=== PATIENT | female | born 1985 | race Caucasian/White ===

== ENCOUNTER 2017-12-07 20:00 | Emergency (ER) | payer OTHER ==
[2017-12-07 20:10] VITALS: BP 130/70; PULSE 89; TEMP 98.2; BMI 30.1
[2017-12-07] MEDS ORDERED: BACITRACIN 15 GM TUBE TOPICAL OINTMENT ONE (20:34)
--- NOTE | 2017-12-07 20:51 | PDOC ---
History of Present Illness - General Chief Complaint: Laceration Stated Complaint: LACERATION Time Seen by Provider: 12/07/17 20:40 History Source: Patient Exam Limitations: No Limitations - History of Present Illness Initial Comments: 12/07/17 20:40 Was opening avocado, taking the core out when slipped in incurred a stab wound to the midpoint of her left palm. Patient states is painful however does not have numbness or tingling to fingers, and still has range of motion to proximal and distal fourth digit. No active bleeding Occurred: reports: just prior to arrival Severity: reports: mild Pain Location: reports: upper extremity (left palm ) Past History - Travel Traveled outside of the country in the last 30 days: Yes Close contact w/someone who was outside of country & ill: Yes - Past Medical History Allergies/Adverse Reactions: Allergies Allergy/AdvReac Type Severity Reaction Status Date / Time No Known Allergies Allergy Verified 12/07/17 20:10 Home Medications: Ambulatory Orders NK [No Known Home Medication] 12/07/17 Cancer: No Cardiac Disorders: No CVA: No COPD: No DVT: No Dementia: No Diabetes: No - Surgical History Lung Surgery: No - Suicide/Smoking/Psychosocial Hx Smoking History: Never smoked Information on smoking cessation initiated: No Hx Alcohol Use: Yes ("social") Drug/Substance Use Hx: No Substance Use Type: Alcohol Review of Systems - Review of Systems Able to Perform ROS?: Yes Is the patient limited [place] proficient: Yes Constitutional: Yes: See HPI. No: Symptoms Reported, Fever, Malaise Musculoskeletal: Yes: Symptoms Reported, See HPI, Joint Pain (complaints of pain to left hand fourth digit pain but without numbness), Joint Swelling All Other Systems: Reviewed and Negative *Physical Exam - Vital Signs Last Vital Signs Temp Pulse Resp BP Pulse Ox 98.2 F 89 20 130/70 97 12/07/17 20:05 12/07/17 20:05 12/07/17 20:05 12/07/17 20:05 12/07/17 20:05 - Physical Exam General Appearance: Yes: Nourished, Appropriately Dressed, Apparent Distress, Mild Distress HEENT: positive: ANN, Normal ENT Inspection, TMs Normal, Pharynx Normal Neck: positive: Supple Gastrointestinal/Abdominal: positive: Soft Extremity: positive: Normal Capillary Refill, Normal Inspection, Normal Range of Motion (strong flexion and extension against resistance to third fourth and fifth digits of left hand. Sensation is intact and normal 2 radial and ulnar aspect of finger and capillary refill is brisk to distal digit. However patient has tenderness with flexion and extension. Stab wound to palm is at midpoint metacarpal fourth. No active bleeding, no gaping, no structures noted.) Integumentary: positive: Normal Color, Other (stab wound 1 cm) Neurologic: positive: column precaster II-XII NML intact, Fully Oriented, Alert, Normal Response, Motor Strength 5/5 Procedures - Splinting Splint Location: Left: Finger (aluminum foam splint) Pre-Proc Neuro Vasc Exam: normal Pre-Made Type: metal Progress Note - Progress Note Progress Note: Stab wound to hand, not gaping and no active bleeding. Wound irrigated and cleaned Betadine, bacitracin ointment and bulky dressing with aluminum foam splint applied. Reviewed option to not suture patient in agreement to allow drainage and wound healing. Understands need for elevation, splinting, and will follow-up with plastic surgery tomorrow. States tetanus booster is current *DC/Admit/Observation/Transfer Diagnosis at time of Disposition: Puncture wound of hand Qualifiers: Encounter type: initial encounter Foreign body presence: without foreign body Laterality: left Qualified Code(s): S61.432A - Puncture wound without foreign body of left hand, initial encounter - Discharge Dispostion Disposition: HOME Condition at time of disposition: Stable Decision to Admit order: No - Referrals - Patient Instructions Printed Discharge Instructions: DI for Puncture Wound Additional Instructions: Rest, elevate hand as much as possible Avoid heavy lifting or exercise until pain and swelling is resolved or until further directed Keep area highly elevated to reduce swelling s See Dr. Caldwell tomorrow for further wound care and treatment, otherwise Soak hand in warm soapy water tomorrow and reapply bacitracin ointment and bulky dressing with splint. Followup with private physician in one to 2 days if not improving, Return to emergency department for redness, swelling, worsened pain, or evidence of infection May use ibuprofen 2-200 mg tablets every 6 hours as needed for pain - Post Discharge Activity Forms/Work/School Notes: Back to Work
[2017-12-07] MEDS ORDERED: BACITRACIN 15 GM TUBE TOPICAL OINTMENT TP ONE (20:53)
== END 2017-12-07 21:01 | disposition home or self-care (01) ==
LOC: JER 20:00 → JERFT 20:00
PROC: 2W3FX1Z Immobilization of Left Hand using Splint (ICD-10-PCS; principal; 2017-12-07)
DX: S61.432A Puncture wound without foreign body of left hand, initial encounter (principal); W26.0XXA Contact with knife, initial encounter; Y93.G1 Activity, food preparation and clean up; Y92.030 Kitchen in apartment as the place of occurrence of the external cause; Y99.8 Other external cause status
CPT/HCPCS: 99281-25